=== PATIENT | male | born 1935 | race Caucasian/White ===

== ENCOUNTER → 2017-10-17 | Outpatient (CLI) | payer MEDICARE ==
[~2017-10-17] MED LIST: Azithromycin500 MG PO; BLOOD PRESSURE MED; THYROID MED
== END | disposition home or self-care (01) ==
LOC: PLD 11:10 → LAB SHORT 11:10
DX: C44.42 Squamous cell carcinoma of skin of scalp and neck (principal); L57.0 Actinic keratosis; L57.8 Other skin changes due to chronic exposure to nonionizing radiation
CPT/HCPCS: 88305

== ENCOUNTER → 2019-05-27 | Outpatient (CLI) | payer MEDICARE ==
[2019-05-27 19:33] LABS: BASOPHILS ABSOLUTE AUTO 0.08 K/mm3 (0.00-0.23); BASOPHILS PERCENT AUTO 1 % (0-2); EOSINOPHILS ABSOLUTE AUTO 0.53 K/mm3 (0.00-0.68); EOSINOPHILS PERCENT AUTO 6 % (0-6); Hematocrit 46.4 % (37.0-53.0); Hemoglobin 15.7 g/dL (13.5-17.5); IMMATURE GRAN ABSOLUTE AUTO 0.04 K/mm3 (0.00-0.10); IMMATURE GRAN PERCENT AUTO 1 % (0-1); LYMPHOCYTES ABSOLUTE AUTO 1.78 K/mm3 (0.84-5.20); LYMPHOCYTES PERCENT AUTO 20 % (21-46); MONOCYTES ABSOLUTE AUTO 0.89 K/mm3 (0.16-1.47); MONOCYTES PERCENT AUTO 10 % (4-13); Mean Corpuscular HGB 29.7 pg (26.0-34.0); Mean Corpuscular HGB Conc 33.8 g/dL (31.5-36.5); Mean Corpuscular Volume 88 fL (80-100); Mean Platelet Volume 10.3 fL (9.1-12.4); NEUTROPHILS PERCENT AUTO 62 % (41-73); Platelet Count 374 K/mm3 (150-400); RDW Coefficient Variation 13.1 % (11.7-14.2); RDW Standard Deviation 42.5 fL (35.1-46.3); Red Blood Cell Count 5.29 M/mm3 (4.30-5.90); White Blood Cell Count 8.72 K/mm3 (4.00-11.30)
[2019-05-27 20:18] LABS: Alanine Aminotransfer (ALT/SGP 19 U/L (12-78); Albumin, Blood 3.7 g/dL (3.4-5.0); Albumin/Globulin Ratio 0.9 (0.8-1.8); Alk Phos 130 U/L (50-136); Anion Gap 6 mmol/L (6-16); Aspartate Aminotrans (AST/SGOT 24 U/L (12-37); Bilirubin, Total 0.4 mg/dL (0.1-1.0); Blood Urea Nitrogen 14 mg/dL (8-24); CO2, Blood 24 mmol/L (21-32); Calcium, Blood 9.3 mg/dL (8.5-10.1); Chloride, Blood 101 mmol/L (98-108); Creatinine, Blood 1.08 mg/dL (0.60-1.20); Globulin, Blood 3.9 g/dL (2.2-4.0); Glomerular Filtration Rate >60 (60-); Glucose, Blood 95 mg/dL (70-99); Potassium, Blood 4.4 mmol/L (3.5-5.5); Sodium, Blood 131 mmol/L (136-145); Total Protein, Blood 7.6 g/dL (6.4-8.2); Uric Acid, Blood 5.8 mg/dL (3.5-7.2)
== END | disposition home or self-care (01) ==
LOC: LAB 09:30 → LAB SHORT 09:30
PROVIDERS: Nurse Practitioner Family
DX: M10.9 Gout, unspecified (principal)
CPT/HCPCS: 80053; 84550; 85025

== ENCOUNTER → 2019-06-05 | Outpatient (CLI) | payer MEDICARE ==
[2019-06-05 15:54] LABS: Anion Gap 7 mmol/L (6-16); Blood Urea Nitrogen 18 mg/dL (8-24); Bun/Creatinine Ratio 16.7 (12.0-20.0); CO2, Blood 27 mmol/L (21-32); Calcium, Blood 9.3 mg/dL (8.5-10.1); Chloride, Blood 103 mmol/L (98-108); Creatinine, Blood 1.08 mg/dL (0.60-1.20); Glomerular Filtration Rate >60 (60-); Glucose, Blood 98 mg/dL (70-99); Potassium, Blood 3.9 mmol/L (3.5-5.5); Sodium, Blood 137 mmol/L (136-145)
== END | disposition home or self-care (01) ==
LOC: LAB 12:45 → LAB SHORT 12:45
PROVIDERS: Nurse Practitioner Family
DX: E87.1 Hypo-osmolality and hyponatremia (principal)
CPT/HCPCS: 80048

== ENCOUNTER 2020-07-23 21:35 | Emergency (ER) | payer OTHER, MEDICARE ==
[~2020-07-23] VITALS: Ht 167.6 cm; Wt 70.3 kg
[2020-07-23 22:38] LABS: Troponin I 0.025 ng/mL (0.000-0.040)
[2020-07-23 22:39] LABS: Alanine Aminotransfer (ALT/SGP 138 U/L (12-78); Albumin, Blood 3.7 g/dL (3.4-5.0); Albumin/Globulin Ratio 1.2 (0.8-1.8); Alk Phos 170 U/L (50-136); Anion Gap 8 mmol/L (6-16); Aspartate Aminotrans (AST/SGOT 166 U/L (12-37); Bilirubin, Total 0.6 mg/dL (0.1-1.0); Blood Urea Nitrogen 20 mg/dL (8-24); CO2, Blood 23 mmol/L (21-32); Calcium, Blood 8.5 mg/dL (8.5-10.1); Chloride, Blood 102 mmol/L (98-108); Creatinine, Blood 1.11 mg/dL (0.60-1.20); Globulin, Blood 3.2 g/dL (2.2-4.0); Glomerular Filtration Rate >60 (60-); Glucose, Blood 100 mg/dL (70-99); Potassium, Blood 4.3 mmol/L (3.5-5.5); Sodium, Blood 133 mmol/L (136-145); Total Protein, Blood 6.9 g/dL (6.4-8.2)
[2020-07-23 22:58] LABS: BASOPHILS ABSOLUTE AUTO 0.09 K/mm3 (0.00-0.23); BASOPHILS PERCENT AUTO 1 % (0-2); EOSINOPHILS ABSOLUTE AUTO 0.17 K/mm3 (0.00-0.68); EOSINOPHILS PERCENT AUTO 2 % (0-6); Hematocrit 38.5 % (37.0-53.0); Hemoglobin 12.8 g/dL (13.5-17.5); IMMATURE GRAN ABSOLUTE AUTO 0.04 K/mm3 (0.00-0.10); IMMATURE GRAN PERCENT AUTO 0 % (0-1); LYMPHOCYTES ABSOLUTE AUTO 1.18 K/mm3 (0.84-5.20); LYMPHOCYTES PERCENT AUTO 12 % (21-46); MONOCYTES ABSOLUTE AUTO 0.94 K/mm3 (0.16-1.47); MONOCYTES PERCENT AUTO 9 % (4-13); Mean Corpuscular HGB 29.5 pg (26.0-34.0); Mean Corpuscular HGB Conc 33.2 g/dL (31.5-36.5); Mean Corpuscular Volume 89 fL (80-100); Mean Platelet Volume 10.7 fL (9.1-12.4); NEUTROPHILS PERCENT AUTO 76 % (41-73); Platelet Count 267 K/mm3 (150-400); RDW Coefficient Variation 13.3 % (11.7-14.2); RDW Standard Deviation 43.7 fL (35.1-46.3); Red Blood Cell Count 4.34 M/mm3 (4.30-5.90); White Blood Cell Count 10.12 K/mm3 (4.00-11.30)
== END 2020-07-24 00:43 | disposition home or self-care (01) ==
LOC: ER 21:35
PROVIDERS: Internal Medicine Cardiovascular Disease
DX: I10 Essential (primary) hypertension (principal); R06.00 Dyspnea, unspecified; E03.9 Hypothyroidism, unspecified
CPT/HCPCS: 36415; 71045; 80053; 83880; 84484; 85025; 93005; 93010; 99284-25

== ENCOUNTER 2021-02-18 17:20 | Inpatient (IN) | payer OTHER, MEDICARE ==
[~2021-02-18] VITALS: Ht 165.1 cm; Wt 66.3 kg
[~2021-02-18 17:20] MED LIST changes: -ATEN25 PO; -CLON.1 PO; -EUTHYROX88 MCG PO; -FURO20 PO; -NORVASC2.5 MG PO; -XARELTO15 MG PO; -ZESTRIL40 M1 PO
[2021-02-18 19:16] LABS: Anion Gap 11 mmol/L (6-16); Blood Urea Nitrogen 18 mg/dL (8-24); Bun/Creatinine Ratio 15.9 (12.0-20.0); CO2, Blood 26 mmol/L (21-32); Calcium, Blood 10.4 mg/dL (8.5-10.1); Chloride, Blood 96 mmol/L (98-108); Creatinine, Blood 1.13 mg/dL (0.60-1.20); Glomerular Filtration Rate >60 (60-); Glucose, Blood 142 mg/dL (70-99); Potassium, Blood 4.2 mmol/L (3.5-5.5); Sodium, Blood 133 mmol/L (136-145)
[2021-02-18] MEDS ORDERED: FURO20 PO (19:36)
[2021-02-18] MEDS ORDERED: ATEN25 PO (19:36)
[2021-02-18] MEDS ORDERED: XARELTO15 MG PO (19:37)
[2021-02-18] MEDS ORDERED: EUTHYROX88 MCG PO (19:37)
[2021-02-18] MEDS ORDERED: CLON.1 PO (19:37)
[2021-02-18] MEDS ORDERED: NORVASC2.5 MG PO (19:37)
[2021-02-18] MEDS ORDERED: ZESTRIL40 M1 PO (19:37)
--- NOTE | 2021-02-19 03:16 | NUR ---
CALL PLACED TO ADMITTING PHYSICIAN TO CLARIFY AIRBRONE PRECAUTIONS LISTED ON PATIENTS ADMIN DATA, ER UNAWARE OF REASON AND NOTHING NOTED IN PATIENTS MEDICAL HISTORY RELATED TO THIS. DR. DEL CID VERBALIZES NO REASON KNOWN TO HIM AND REPORTS PT DOES NOT HAVE ANY HX/DX THAT HE IS AWARE OF TO INDICATE A REASON FOR AIRBORNE PRECAUTIONS. PT DENIES HX OF TB, SHINGLES OR ANY OTHER DX TO NECESSITATE PT BEING PLACED IN AIRBORNE PRECAUTIONS. WILL REMOVE PRECAUTION PER ORDERS.
[2021-02-19 04:50] LABS: Anion Gap 5 mmol/L (6-16); Blood Urea Nitrogen 17 mg/dL (8-24); Bun/Creatinine Ratio 15.3 (12.0-20.0); CO2, Blood 31 mmol/L (21-32); Calcium, Blood 9.9 mg/dL (8.5-10.1); Chloride, Blood 95 mmol/L (98-108); Creatinine, Blood 1.11 mg/dL (0.60-1.20); Glomerular Filtration Rate >60 (60-); Glucose, Blood 106 mg/dL (70-99); Sodium, Blood 131 mmol/L (136-145)
--- NOTE | 2021-02-19 11:39 | NUR ---
PT TO IMAGING
--- NOTE | 2021-02-19 14:45 | NUR ---
PT HAD BM BUT DENIES PASSING FLATUS. ANXIOUS TO EAT AND GO HOME. ADVISED PT DR BABIN WILL REVIEW XRAYS. DAUGHTER AT BEDSIDE.
--- NOTE | 2021-02-19 14:58 | NUR ---
PT TO IMAGING
--- NOTE | 2021-02-19 15:21 | NUR ---
PT RETURNED FROM IMAGING
--- NOTE | 2021-02-19 16:07 | NUR ---
PT TO IMAGING.
--- NOTE | 2021-02-19 16:23 | NUR ---
PT BACK FROM IMAGING.
--- NOTE | 2021-02-19 17:58 | NUR ---
SHIFT SUMMARY A&OX4. PT COUNCIL, EXPELS AIR IN ORDER TO SPEAK. NO COMPLAINTS OF PAIN OR NAUSEA THROUGHOUT SHIFT. PT HAS HAD MULTIPLE LOOSE STOOLS. NO REPORTS OF PASSING FLATUS. RECIEVED IMAGING DURING SHIFT. LIQUID DIET ORDERED, PT TOLERATING THUS FAR. PT RESTING IN HOSPITAL BED. CALL LIGHT IN REACH.
--- NOTE | 2021-02-19 18:30 | NUR ---
PT HAVING MULTIPLE LOOSE BMS AFTER SBFT. ATTENDS PROVIDED.
--- NOTE | 2021-02-19 19:11 | NUR ---
PT OKAY TO DC PER DR GARCIA AND DR BABIN. PT REPORTS TOLERATED FULL LIQUID DIET. DENIES PAIN OR N/V. DAUGHTER AT BEDSIDE. REPORTED TO ONCOMING SHIFT.
--- NOTE | 2021-02-19 20:16 | NUR ---
REVIEWED DISCHARGE ORDERS WITH PT COMPLETE PER DAY RN.PT AND DAUGHTER VERB UNDERSTANDING.DISCHARGED VIA W/C PER THIS RN TO DAUGHTERS CAR.
== END 2021-02-19 19:50 | disposition home or self-care (01) | DRG 389 ==
LOC: ER 17:20 → SURS 21:13
PROVIDERS: Student in an Organized Health Care Education/Training Program; ADMIT Internal Medicine
DX: K56.51 Intestinal adhesions [bands], with partial obstruction (principal); E87.1 Hypo-osmolality and hyponatremia; I10 Essential (primary) hypertension; E03.9 Hypothyroidism, unspecified; H91.90 Unspecified hearing loss, unspecified ear; Z98.890 Other specified postprocedural states; Z79.01 Long term (current) use of anticoagulants; Z79.899 Other long term (current) drug therapy
CPT/HCPCS: 36415; 74019; 74022; 74177; 74250; 80048; 80053; 83605; 85025; 93005; 93010; 99285-25; J1650; J7030; Q9967

== ENCOUNTER → 2021-02-18 | Outpatient (CLI) | payer MEDICARE ==
[~2021-02-18] MED LIST changes: +ATEN25 PO; +CLON.1 PO; +EUTHYROX88 MCG PO; +FURO20 PO; +NORVASC2.5 MG PO; +XARELTO15 MG PO; +ZESTRIL40 M1 PO
[2021-02-18 16:57] LABS: BASOPHILS ABSOLUTE AUTO 0.03 K/mm3 (0.00-0.23); BASOPHILS PERCENT AUTO 0 % (0-2); EOSINOPHILS ABSOLUTE AUTO 0.01 K/mm3 (0.00-0.68); EOSINOPHILS PERCENT AUTO 0 % (0-6); Hematocrit 47.3 % (37.0-53.0); Hemoglobin 16.2 g/dL (13.5-17.5); IMMATURE GRAN ABSOLUTE AUTO 0.04 K/mm3 (0.00-0.10); IMMATURE GRAN PERCENT AUTO 0 % (0-1); LYMPHOCYTES ABSOLUTE AUTO 0.94 K/mm3 (0.84-5.20); LYMPHOCYTES PERCENT AUTO 7 % (21-46); MONOCYTES ABSOLUTE AUTO 0.45 K/mm3 (0.16-1.47); MONOCYTES PERCENT AUTO 4 % (4-13); Mean Corpuscular HGB 30.1 pg (26.0-34.0); Mean Corpuscular HGB Conc 34.2 g/dL (31.5-36.5); Mean Corpuscular Volume 88 fL (80-100); Mean Platelet Volume 10.1 fL (9.1-12.4); NEUTROPHILS ABSOLUTE AUTO 11.34 K/mm3 (1.96-9.15); NEUTROPHILS PERCENT AUTO 89 % (41-73); Platelet Count 341 K/mm3 (150-400); RDW Coefficient Variation 14.1 % (11.7-14.2); RDW Standard Deviation 45.1 fL (35.1-46.3); Red Blood Cell Count 5.38 M/mm3 (4.30-5.90); White Blood Cell Count 12.81 K/mm3 (4.00-11.30)
[2021-02-18 17:08] LABS: Albumin, Blood 3.9 g/dL (3.4-5.0); Albumin/Globulin Ratio 1.1 (0.8-1.8); Bilirubin, Total 1.2 mg/dL (0.1-1.0); Bun/Creatinine Ratio 12.6 (12.0-20.0); Calcium, Blood 9.9 mg/dL (8.5-10.1); Creatinine, Blood 1.35 mg/dL (0.60-1.20); Globulin, Blood 3.5 g/dL (2.2-4.0); Potassium, Blood 4.5 mmol/L (3.5-5.5); Total Protein, Blood 7.4 g/dL (6.4-8.2)
== END | disposition home or self-care (01) ==
LOC: LAB EV 16:53 → LAB SHORT 16:53
PROVIDERS: Physician Assistant Surgical
DX: R10.9 Unspecified abdominal pain (principal)
CPT/HCPCS: 80053; 85025

== ENCOUNTER 2021-12-23 08:06 | Observation (INO) | payer MEDICARE ==
[~2021-12-23] VITALS: Ht 162.6 cm; Wt 61.0 kg
[~2021-12-23 08:06] MED LIST changes: +ATEN25 PO; +CLON.1 PO; +EUTHYROX88 MCG PO; +FURO20 PO; +NORVASC2.5 MG PO; +XARELTO15 MG PO; +ZESTRIL40 M1 PO
[2021-12-23 09:06] LABS: BASOPHILS ABSOLUTE AUTO 0.03 K/mm3 (0.00-0.23); BASOPHILS PERCENT AUTO 0 % (0-2); EOSINOPHILS PERCENT AUTO 0 % (0-6); Hematocrit 48.9 % (37.0-53.0); Hemoglobin 16.3 g/dL (13.5-17.5); IMMATURE GRAN PERCENT AUTO 1 % (0-1); LYMPHOCYTES ABSOLUTE AUTO 0.76 K/mm3 (0.84-5.20); LYMPHOCYTES PERCENT AUTO 4 % (21-46); MONOCYTES ABSOLUTE AUTO 1.36 K/mm3 (0.16-1.47); MONOCYTES PERCENT AUTO 8 % (4-13); Mean Corpuscular HGB 30.1 pg (26.0-34.0); Mean Corpuscular HGB Conc 33.3 g/dL (31.5-36.5); Mean Corpuscular Volume 90 fL (80-100); Mean Platelet Volume 10.9 fL (9.1-12.4); NEUTROPHILS ABSOLUTE AUTO 15.13 K/mm3 (1.96-9.15); NEUTROPHILS PERCENT AUTO 87 % (41-73); Platelet Count 329 K/mm3 (150-400); RDW Coefficient Variation 15.2 % (11.7-14.2); RDW Standard Deviation 50.6 fL (35.1-46.3); Red Blood Cell Count 5.41 M/mm3 (4.30-5.90); White Blood Cell Count 17.38 K/mm3 (4.00-11.30)
[2021-12-23 09:22] LABS: Alanine Aminotransfer (ALT/SGP 35 U/L (12-78); Albumin, Blood 3.8 g/dL (3.4-5.0); Alk Phos 123 U/L (50-136); Anion Gap 13 mmol/L (6-16); Aspartate Aminotrans (AST/SGOT 77 U/L (12-37); Blood Urea Nitrogen 26 mg/dL (8-24); Bun/Creatinine Ratio 23.2 (12.0-20.0); CO2, Blood 21 mmol/L (21-32); Calcium, Blood 9.7 mg/dL (8.5-10.1); Chloride, Blood 104 mmol/L (98-108); Creatinine, Blood 1.12 mg/dL (0.60-1.20); Glomerular Filtration Rate >60 (60-); Glucose, Blood 157 mg/dL (70-99); Potassium, Blood 4.5 mmol/L (3.5-5.5); Sodium, Blood 138 mmol/L (136-145); Total Protein, Blood 7.8 g/dL (6.4-8.2)
--- NOTE | 2021-12-23 18:20 | NUR ---
COMFORT CARE SUMMARY PATIENT ADMITTED FROM ER AT 1330. PATIENT SETTLED INTO ROOM. PATIENT ARRIVED WITH COMFORT CARE ORDERS. PATIENT MEDICATED X1 DUE TO GRIMACING. PATIENT IS UNRESPONSIVE, BUT WILL GRIMACE WITH PAIN. PATIENT COMFORTABLE AND SLEEPING.
--- NOTE | 2021-12-23 21:01 | NUR ---
CALLED HOSPITALIST NOTIFIED HIM OF EXCESSIVE SECRETIONS. MEDICATION ORDERED, SEE EMAR
--- NOTE | 2021-12-24 03:57 | NUR ---
SHIFT SUMMARY ADMITTED FOR HEMORRHAGIC STROKE. DNR CODE/COMFORT CARE. NOTED HEAVY THICK SECRETIONS. SEE PREVIOUS NOTE. MEDICATION GIVEN PER EMAR, PERIODIC SUCTIONING. Q2 TURNS. HE IS UNRESPONSIVE. INCONTINENT, ATTENDS IN PLACE. HE IS ON BEDREST AND NPO. Q2 AND PRN COMFORT CARE ASSESSMENTS
--- NOTE | 2021-12-24 09:21 | NUR ---
pt having increased thick secretions. roxinol added and review of care with physician and nurse. pt flushed by no sighns of discomfort.
--- NOTE | 2021-12-24 17:42 | NUR ---
SHIFT SUMMARY PT UNRESPONSIVE PRIOR TO START OF SHIFT. PT HAS RESTED QUIETLY TO PRESENT. RESPIRATIONS MOSTLY UNCHANGED TO PRESENT. MEDICATED X1 FOR AIR HUNGER. PT TURNED PER PROTOCOL. ATTENDS CHANGED X1 ONLY WITH MINIMAL URINE OUT. ORAL CARE DONE. PT UNRESPONSIVE DURING ALL CARE. FAMILY IN TO VISIT THRU OUT THE DAY. NO RESPONSE TO FAMILY EITHER. WILL CONTINUE TO MONITOR.
--- NOTE | 2021-12-24 22:54 | NUR ---
PT APPEARS COMFORTABLE, RESTING.
--- NOTE | 2021-12-24 23:59 | NUR ---
PT APPEARS COMFORTABLE
--- NOTE | 2021-12-25 00:02 | NUR ---
PT APPEARS COMFORTABLE
--- NOTE | 2021-12-25 00:03 | NUR ---
PT APPEARS COMFORTABLE. RESTING
--- NOTE | 2021-12-25 03:09 | NUR ---
PT ON COMFORT CARE, KAREN ORIENTATION STATUS, PT IS NON RESPONSIVE. GIVEN ROXANOL FOR COMFORT AND AIR HUNGER. REPOSITIONED Q2H, ORAL CARE PERFORMED. PT APPEARS COMFORTABLE AFTER CARES AND MEDICATIONS. WILL CONTINUE COMFORT CARE MEASURES ON THIS PT.
--- NOTE | 2021-12-25 19:07 | NUR ---
pt comfortable will follow up with [facility].
--- NOTE | 2021-12-26 03:05 | NUR ---
PT CONTINUES TO BE NONRESPONSIVE. BREATHING LABORED BUT APPEARS COMFORTABLE. TURN Q2H, AND GIVEN ROXINOL THROUGHOUT THE NIGHT TO PROVIDE COMFORT. WILL CONTINUE TO MONITOR THIS PATIENT.
--- NOTE | 2021-12-26 08:00 | NUR ---
RESP DEEP AND SPACED APART UP TO 25 SECONDS AT A TIME. NONRESPONSIVE TO ANY TOUCH OR VERBAL STIMULUS.
--- NOTE | 2021-12-26 11:00 | NUR ---
FOUND WITH NO RESP OR HEART RATE AT 1050. HAD LAST BEEN CHECKED AT 1030. MD NOTIFIED WELL FAMILY. CHARGE AWARE AND WILL BE CALLING [facility].
--- NOTE | 2021-12-26 12:30 | NUR ---
[facility] HERE TO PICK PT UP AT 1220. FAMILY CAME AND PICKED UP POCKETKNIFE BUT REQUESTED REMAINING CLOTHES TO BE DISPOSED OF.
== END 2021-12-26 11:07 ==
LOC: ER 08:06 → MEDS 08:07
PROVIDERS: Emergency Medicine; ADMIT Family Medicine
DX: Z51.5 Encounter for palliative care (principal); I62.9 Nontraumatic intracranial hemorrhage, unspecified; I61.9 Nontraumatic intracerebral hemorrhage, unspecified; E03.9 Hypothyroidism, unspecified; I48.91 Unspecified atrial fibrillation; J18.9 Pneumonia, unspecified organism; I11.9 Hypertensive heart disease without heart failure; G93.6 Cerebral edema; Z66 Do not resuscitate; Z79.01 Long term (current) use of anticoagulants
CPT/HCPCS: 70450; 71045; 80053; 85025; 93005; 93010; 99285-25; A9270; J2270; J7120